=== PATIENT | female | born 1955 | race African-American/Black ===

== ENCOUNTER 2023-04-17 16:10 | Inpatient (IN) | payer MEDICARE, OTHER ==
[~2023-04-17] VITALS: Ht 162.6 cm; Wt 72.9 kg
[2023-04-17] VITALS (7 sets, daily range): BP systolic 122–240; BP diastolic 68–133; PULSE 89–108; RESP 14–20; O2SAT 98–100
[2023-04-17] MEDS: ETOMIDATE (2MG/ML) 20ML VIAL IV ONE ×2 (16:10→16:36)
[2023-04-17] MEDS: LORazepam 2MG/ML-1ML VIAL IV ONE ×2 (16:10→16:13)
[2023-04-17] MEDS: ROCURONIUM 10MG/ML 10ML VIAL IV ONE ×2 (16:10→16:36)
[2023-04-17] MEDS: PROPOFOL 100 ML IV SCH (16:22)
[2023-04-17 16:42] LABS: Basophils # (auto) 0 10 ^3/uL (0-0.2); Basophils % (auto) 0.6 % (0.0-2.0); Eosinophils # (auto) 0.1 10 ^3/uL (0-0.8); Eosinophils % (auto) 1.1 % (0.0-7.0); Hemoglobin 10.7 g/dL (12.2-16.2); Lymphocytes # (auto) 1.5 10 ^3/uL (0.4-5.4); Lymphocytes % (auto) 16.6 % (10.0-50.0); Mean Corpuscular Hemoglobin 25.8 pg (28.0-32.0); Mean Corpuscular Hgb Conc. 30.5 g/dL (32.0-36.0); Mean Corpuscular Volume 84.5 fL (80.0-100.0); Monocytes # (auto) 0.5 10 ^3/uL (0-1.3); Monocytes % (auto) 5.6 % (0.0-12.0); Neutrophils # (auto) 6.7 10 ^3/uL (1.6-8.6); Neutrophils % (auto) 76.1 % (37.0-80.0); Red Blood Cells 4.14 10^6/uL (4.0-5.20); Red Cell Distribution Width 16.1 % (11.8-14.3); White Blood Cell 8.8 10^3/uL (4.4-10.8)
[2023-04-17] MEDS ORDERED: LORazepam 2MG/ML-1ML VIAL IV ONE (16:45)
[2023-04-17 16:58] LABS: INR 0.95 (0.9-1.15)
[2023-04-17 17:04] LABS: Alanine Aminotransferase 25 U/L (7-40); Albumin 3.7 g/dL (3.2-4.8); Alkaline Phosphatase 112 U/L (46-116); Anion Gap 7 (5-15); Aspartate Aminotransferase 28 U/L (13-40); BUN/Creatinine Ratio 10.5 (10.0-20.0); Blood Alcohol < 3.0 mg/dL (<10); Blood Urea Nitrogen 16 mg/dL (9-23); Calcium 9.4 mg/dL (8.5-10.1); Carbon Dioxide 26 mmol/L (20-30); Chloride 95 mmol/L (98-107); Potassium 3.7 mmol/L (3.5-5.1); Sodium 128 mmol/L (136-145)
[2023-04-17] MEDS: levETIRAcetam 1000 mg/100ml 100 ML IV ONE (17:04)
[2023-04-17] MEDS: levETIRAcetam 500 MG/5ML INJ IV ONE (17:04)
[2023-04-17 17:05] LABS: Bilirubin, Total 0.4 mg/dL (0.2-1.0)
[2023-04-17 17:14] LABS: Glucose 708 mg/dL (74-106)
[2023-04-17 17:16] LABS: Urine Bacteria FEW /hpf (None Seen); Urine Blood 1+ /uL (Negative); Urine Clarity Clear (Clear); Urine Color Colorless (Yellow); Urine Protein, UAD 2+ (Negative); Urine Urobilinogen Normal (Negative); Urine WBC 99 /hpf (0 - 5)
[2023-04-17 17:19] LABS: Amphetamine Screen, Urine Neg (NEGATIVE); Barbiturate Scree,Urine Neg (NEGATIVE); Benzodiazephine Screen, Urine Pos (NEGATIVE); Cannabinoid Screen, Urine Neg (NEGATIVE); Cocaine Screen, Urine Neg (NEGATIVE); Opiate Scree,Urine Neg (NEGATIVE); Phencyclidine Screen, Urine Neg (NEGATIVE)
[2023-04-17] MEDS: InsuLIN REG 1unit/0.01ml Soln (100units/ml) IV ONE (17:59)
[2023-04-17 18:19] LABS: Base Excess 3.9 mmol/L (-2.0-2.0)
[2023-04-17] MEDS ORDERED: ATOR-47 PO (19:30)
[2023-04-17] MEDS ORDERED: AMLO1TAB23 PO (19:30)
[2023-04-17] MEDS ORDERED: NITROGLYCERIN 0.4 MG SL TAB SL PRN (20:30)
[2023-04-17] MEDS ORDERED: MORPHINE SULFATE INJ 2 MG/ml SYRG IV PRN (20:30)
[2023-04-17 21:36] LABS: Lactic Acid w/Reflex 3.4 mmol/L (0.4-2.0)
[2023-04-17] MEDS: cefTRIAXone 1GM/50ML D5W 50 ML IV ONE (21:51)
[2023-04-17] MEDS: SODIUM CHLORIDE 0.9% 1,000 ML IV SCH (21:51)
[2023-04-17] MEDS: SODIUM CHLORIDE 0.9% 1,750 ML IV ONE (21:51)
[2023-04-17] MEDS: InsuLIN REG 1unit/0.01ml Soln (100units/ml) SC ONE (22:09)
[2023-04-17] MEDS ORDERED: LORazepam 2MG/ML-1ML VIAL IV PRN (22:15)
[2023-04-17] MEDS: ENOXAPARIN SOD 40 MG/0.4 ML SYRINGE SC SCH (22:15)
[2023-04-17] MEDS: INSULIN LANTUS (GLARGINE) 1 /0.01ml (100units/ml) SC SCH (22:17)
[2023-04-18] VITALS (61 sets, daily range): BP systolic 105–185; BP diastolic 66–96; PULSE 59–97; RESP 14–18; TEMP 97–99.3; O2SAT 100
[2023-04-18] MEDS: ACCU-CHEK COMFORT CURVE STRIP VI SCH (00:31)
[2023-04-18] MEDS: InsuLIN REG 1unit/0.01ml Soln (100units/ml) SC SCH (00:54)
[2023-04-18 05:28] LABS: Eosinophils # (auto) 0.1 10 ^3/uL (0-0.8); Eosinophils % (auto) 0.8 % (0.0-7.0); Hemoglobin 9.3 g/dL (12.2-16.2); Lymphocytes # (auto) 1.2 10 ^3/uL (0.4-5.4); Monocytes # (auto) 0.6 10 ^3/uL (0-1.3)
[2023-04-18 05:31] LABS: Basophils # (auto) 0 10 ^3/uL (0-0.2); Basophils % (auto) 0.4 % (0.0-2.0); Hematocrit 28.9 % (36.0-46.0); Lymphocytes % (auto) 9.7 % (10.0-50.0); Mean Corpuscular Hemoglobin 25.7 pg (28.0-32.0); Mean Corpuscular Hgb Conc. 32.2 g/dL (32.0-36.0); Monocytes % (auto) 4.6 % (0.0-12.0); Neutrophils # (auto) 10.3 10 ^3/uL (1.6-8.6); Neutrophils % (auto) 84.5 % (37.0-80.0); Red Blood Cells 3.61 10^6/uL (4.0-5.20); Red Cell Distribution Width 15.2 % (11.8-14.3); White Blood Cell 12.2 10^3/uL (4.4-10.8)
[2023-04-18 05:45] LABS: Alanine Aminotransferase 17 U/L (7-40); Albumin 2.9 g/dL (3.2-4.8); Alkaline Phosphatase 86 U/L (46-116); Anion Gap 6 (5-15); Aspartate Aminotransferase 21 U/L (13-40); BUN/Creatinine Ratio 14.5 (10.0-20.0); Bilirubin, Total 0.3 mg/dL (0.2-1.0); Blood Urea Nitrogen 17 mg/dL (9-23); Calcium 8.8 mg/dL (8.5-10.1); Carbon Dioxide 27 mmol/L (20-30); Chloride 105 mmol/L (98-107); Glucose 173 mg/dL (74-106); Sodium 138 mmol/L (136-145); Total Protein 6.4 g/dL (5.7-8.2)
[2023-04-18 06:11] LABS: Potassium 2.8 mmol/L (3.5-5.1)
[2023-04-18] MEDS: POTASSIUM CHL 20MEQ/100ML 100 ML IV SCH (06:58)
[2023-04-18 07:18] LABS: Base Excess 0.3 mmol/L (-2.0-2.0)
[2023-04-18 08:40] LABS: Magnesium 1.7 mg/dL (1.6-2.6)
[2023-04-18 09:11] LABS: Base Excess -1.1 mmol/L (-2.0-2.0)
[2023-04-18] MEDS: cefTRIAXone 1GM/50ML D5W 50 ML IV SCH (09:45)
[2023-04-18] MEDS ORDERED: HEPARIN SODIUM (PORCINE) 5000 UNITS/ML 1ML VIAL SC SCH (10:00)
[2023-04-18 11:35] LABS: Free T3 1.93 pg/mL (2.3-4.2); Free T4 (Free Thyroxine) 1.05 ng/dL (0.89-1.76)
[2023-04-18] MEDS: DEXTROSE (50%) 50ML SYRG IV PRN (12:20)
[2023-04-18] MEDS: PIPERACILLIN-TAZOB 2.25GM 50 ML IV ONE (13:00)
[2023-04-18] MEDS: fentaNYL Drip 2500mCg/250mlNS 250 ML IV SCH (14:43)
[2023-04-18] MEDS: PIPERACILLIN-TAZOB 3.375GM 100 ML IV SCH (14:44)
[2023-04-18] MEDS: POTASSIUM CHLORIDE 20 MEQ in D5W 5% 1,000 ML IV SCH (15:22)
[2023-04-19] VITALS (45 sets, daily range): BP systolic 111–195; BP diastolic 61–100; PULSE 56–100; RESP 11–23; TEMP 85.1–100.2; O2SAT 97–100
[2023-04-19 06:12] LABS: Alanine Aminotransferase 12 U/L (7-40); Albumin 2.3 g/dL (3.2-4.8); Alkaline Phosphatase 69 U/L (46-116); Anion Gap 5 (5-15); Aspartate Aminotransferase 17 U/L (13-40); BUN/Creatinine Ratio 13.2 (10.0-20.0); Basophils # (auto) 0.1 10 ^3/uL (0-0.2); Blood Urea Nitrogen 14 mg/dL (9-23); Calcium 7.6 mg/dL (8.7-10.4); Carbon Dioxide 24 mmol/L (20-30); Chloride 106 mmol/L (98-107); Eosinophils # (auto) 0.2 10 ^3/uL (0-0.8); Glucose 193 mg/dL (74-106); Lymphocytes # (auto) 3.2 10 ^3/uL (0.4-5.4); Magnesium 1.6 mg/dL (1.6-2.6); Mean Corpuscular Hemoglobin 25.9 pg (28.0-32.0); Monocytes # (auto) 0.6 10 ^3/uL (0-1.3); Potassium 3.2 mmol/L (3.5-5.1); Sodium 135 mmol/L (136-145)
[2023-04-19 06:13] LABS: Bilirubin, Total 0.2 mg/dL (0.2-1.0); Phosphorus 2.8 mg/dL (2.4-5.1); Total Protein 5.5 g/dL (5.7-8.2)
[2023-04-19 06:14] LABS: Basophils % (auto) 0.6 % (0.0-2.0); Hematocrit 25.6 % (36.0-46.0); Hemoglobin 8.3 g/dL (12.2-16.2); Lymphocytes % (auto) 34.2 % (10.0-50.0); Mean Corpuscular Hgb Conc. 32.4 g/dL (32.0-36.0); Monocytes % (auto) 6.3 % (0.0-12.0); Neutrophils # (auto) 5.3 10 ^3/uL (1.6-8.6); Neutrophils % (auto) 56.9 % (37.0-80.0); Red Cell Distribution Width 15.4 % (11.8-14.3); White Blood Cell 9.4 10^3/uL (4.4-10.8)
[2023-04-19 06:25] LABS: Base Excess -3.2 mmol/L (-2.0-2.0)
[2023-04-19] MEDS: PANTOPRAZOLE 40 MG/10 ML VIAL INJ IV SCH (10:18)
[2023-04-19] MEDS: Glucerna 1.2 Cal 1Liter BOTTLE GT SCH (20:21)
[2023-04-19] MEDS: POTASSIUM CHLORIDE 20 MEQ, LIDOCAINE 1% (LOCAL ANESTH.) 2 ML in SODIUM CHL 0.9% 100 ML IV ONE (20:45)
[2023-04-19] MEDS ORDERED: ERGOCALCIFEROL 50,000 UNIT(1.25MG) CAP PO SCH (22:00)
[2023-04-19] MEDS: hydrALAZINE HCL 20 MG/ML VL IV PRN (22:12)
[2023-04-19] MEDS: POTASSIUM CHL 20MEQ/100ML 100 ML IV ONE (22:31)
[2023-04-20] VITALS (104 sets, daily range): BP systolic 91–190; BP diastolic 54–107; PULSE 83–114; RESP 9–33; TEMP 98.6–99.5; O2SAT 95–100
[2023-04-20] MEDS ORDERED: hydrALAZINE HCL 20 MG/ML VL IV SCH
[2023-04-20 04:18] LABS: Eosinophils # (auto) 0.1 10 ^3/uL (0-0.8); Monocytes # (auto) 0.7 10 ^3/uL (0-1.3); Monocytes % (auto) 5.8 % (0.0-12.0)
[2023-04-20 04:20] LABS: Basophils # (auto) 0.1 10 ^3/uL (0-0.2); Basophils % (auto) 0.4 % (0.0-2.0); Eosinophils % (auto) 0.4 % (0.0-7.0); Hematocrit 30.9 % (36.0-46.0); Hemoglobin 10.1 g/dL (12.2-16.2); Lymphocytes # (auto) 1.2 10 ^3/uL (0.4-5.4); Lymphocytes % (auto) 9.2 % (10.0-50.0); Mean Corpuscular Hemoglobin 26.5 pg (28.0-32.0); Mean Corpuscular Hgb Conc. 32.7 g/dL (32.0-36.0); Mean Corpuscular Volume 80.9 fL (80.0-100.0); Neutrophils # (auto) 10.6 10 ^3/uL (1.6-8.6); Neutrophils % (auto) 84.2 % (37.0-80.0); Red Blood Cells 3.82 10^6/uL (4.0-5.20); Red Cell Distribution Width 15.9 % (11.8-14.3); White Blood Cell 12.6 10^3/uL (4.4-10.8)
[2023-04-20 04:41] LABS: Alanine Aminotransferase 14 U/L (7-40); Alkaline Phosphatase 95 U/L (46-116); Anion Gap 5 (5-15); BUN/Creatinine Ratio 12.8 (10.0-20.0); Blood Urea Nitrogen 14 mg/dL (9-23); Calcium 8.2 mg/dL (8.7-10.4); Carbon Dioxide 24 mmol/L (20-30); Chloride 107 mmol/L (98-107); Glucose 112 mg/dL (74-106); Potassium 4.6 mmol/L (3.5-5.1); Sodium 136 mmol/L (136-145)
[2023-04-20 04:42] LABS: Albumin 2.8 g/dL (3.2-4.8); Aspartate Aminotransferase 24 U/L (13-40); Bilirubin, Total 0.2 mg/dL (0.2-1.0); Total Protein 6.4 g/dL (5.7-8.2)
[2023-04-20] MEDS ORDERED: VANCOMYCIN PER PHARMACY 0 MG IV SCH (08:15)
[2023-04-20 11:41] LABS: Base Excess -1.6 mmol/L (-2.0-2.0)
[2023-04-20] MEDS: hydrALAZINE HCL 20 MG/ML VL IV ONE ×2 (11:52→17:16)
[2023-04-20] MEDS: VANCOMYCIN 1GM/200ML 200 ML IV ONE (12:20)
[2023-04-20] MEDS: IRON SUCROSE COMPLEX 100 ML IV SCH (14:48)
[2023-04-20] MEDS: CEFEPIME 1GM/ 50ML 50 ML IV SCH (15:02)
[2023-04-21] VITALS (109 sets, daily range): BP systolic 129–180; BP diastolic 63–110; PULSE 36–107; RESP 8–24; TEMP 98.3–99.4; O2SAT 98–100
[2023-04-21 04:31] LABS: Basophils # (auto) 0.1 10 ^3/uL (0-0.2); Basophils % (auto) 0.5 % (0.0-2.0); Eosinophils # (auto) 0.1 10 ^3/uL (0-0.8); Eosinophils % (auto) 0.7 % (0.0-7.0); Hematocrit 29.7 % (36.0-46.0); Hemoglobin 9.2 g/dL (12.2-16.2); Lymphocytes # (auto) 1.5 10 ^3/uL (0.4-5.4); Lymphocytes % (auto) 12.2 % (10.0-50.0); Mean Corpuscular Hemoglobin 25.5 pg (28.0-32.0); Mean Corpuscular Hgb Conc. 30.8 g/dL (32.0-36.0); Mean Corpuscular Volume 82.9 fL (80.0-100.0); Monocytes # (auto) 1.2 10 ^3/uL (0-1.3); Monocytes % (auto) 9.7 % (0.0-12.0); Neutrophils # (auto) 9.6 10 ^3/uL (1.6-8.6); Neutrophils % (auto) 76.9 % (37.0-80.0); Red Blood Cells 3.59 10^6/uL (4.0-5.20); Red Cell Distribution Width 15.9 % (11.8-14.3); White Blood Cell 12.5 10^3/uL (4.4-10.8)
[2023-04-21 04:37] LABS: Chloride 112 mmol/L (98-107); Potassium 3.8 mmol/L (3.5-5.1); Sodium 142 mmol/L (136-145)
[2023-04-21 04:38] LABS: Anion Gap 7 (5-15); Calcium 8.3 mg/dL (8.7-10.4); Carbon Dioxide 23 mmol/L (20-30)
[2023-04-21 04:43] LABS: BUN/Creatinine Ratio 11.9 (10.0-20.0); Blood Urea Nitrogen 12 mg/dL (9-23); Glucose 70 mg/dL (74-106)
[2023-04-21 05:23] LABS: Base Excess -1.5 mmol/L (-2.0-2.0)
[2023-04-21] MEDS: hydrALAZINE HCL 20 MG/ML VL IV PRN (05:45)
[2023-04-21] MEDS: ONDANSETRON HCL 4 MG/2 ML VIAL IV PRN (07:12)
[2023-04-21] MEDS: amLODIPine BESYLATE 5 MG TAB PO SCH (10:00)
[2023-04-21] MEDS: METOCLOPRAMIDE HCL 5MG/ml INJ 2ml VIAL IV PRN (11:31)
[2023-04-21] MEDS: VANCOMYCIN 1GM/200ML 200 ML IV SCH (12:27)
[2023-04-21] MEDS: IPRATROPIUM BROM 0.5 MG/2.5ML INH SOL NEB SCH (12:40)
[2023-04-21] MEDS ORDERED: METOCLOPRAMIDE HCL 5MG/ml INJ 2ml VIAL IV PRN (14:45)
[2023-04-21] MEDS: hydrALAZINE HCL 20 MG/ML VL IV SCH (18:45)
[2023-04-21 19:17] LABS: Chloride 111 mmol/L (98-107); Potassium 3.9 mmol/L (3.5-5.1); Sodium 141 mmol/L (136-145)
[2023-04-21 19:18] LABS: Anion Gap 8 (5-15); Calcium 8.6 mg/dL (8.7-10.4); Carbon Dioxide 22 mmol/L (20-30)
[2023-04-21 19:23] LABS: BUN/Creatinine Ratio 15.6 (10.0-20.0); Blood Urea Nitrogen 15 mg/dL (9-23); Glucose 119 mg/dL (74-106)
[2023-04-22] VITALS (58 sets, daily range): BP systolic 99–171; BP diastolic 53–95; PULSE 71–94; RESP 11–16; TEMP 97.9–98.6; O2SAT 95–100
[2023-04-22] MEDS: ERGOCALCIFEROL 50,000 UNIT(1.25MG) CAP PO SCH (00:23)
[2023-04-22 04:12] LABS: Eosinophils # (auto) 0 10 ^3/uL (0-0.8); Hemoglobin 9.5 g/dL (12.2-16.2); Mean Corpuscular Hemoglobin 25.8 pg (28.0-32.0); Neutrophils # (auto) 9.3 10 ^3/uL (1.6-8.6); Neutrophils % (auto) 79.9 % (37.0-80.0); Red Blood Cells 3.69 10^6/uL (4.0-5.20); White Blood Cell 11.7 10^3/uL (4.4-10.8)
[2023-04-22 04:14] LABS: Basophils # (auto) 0.1 10 ^3/uL (0-0.2); Basophils % (auto) 0.5 % (0.0-2.0); Eosinophils % (auto) 0.2 % (0.0-7.0); Hematocrit 30.7 % (36.0-46.0); Lymphocytes # (auto) 1.3 10 ^3/uL (0.4-5.4); Lymphocytes % (auto) 10.9 % (10.0-50.0); Mean Corpuscular Hgb Conc. 31.1 g/dL (32.0-36.0); Monocytes % (auto) 8.5 % (0.0-12.0); Nucleated Red Blood Cells % 0.1 %; Red Cell Distribution Width 16.2 % (11.8-14.3)
[2023-04-22 04:23] LABS: Chloride 111 mmol/L (98-107); Potassium 3.8 mmol/L (3.5-5.1); Sodium 141 mmol/L (136-145)
[2023-04-22 04:24] LABS: Anion Gap 8 (5-15); Carbon Dioxide 22 mmol/L (20-30)
[2023-04-22 04:29] LABS: BUN/Creatinine Ratio 16.8 (10.0-20.0); Blood Urea Nitrogen 17 mg/dL (9-23); Glucose 141 mg/dL (74-106)
[2023-04-22] MEDS: POTASSIUM CHL 20MEQ/100ML 100 ML IV SCH (12:17)
[2023-04-23] VITALS (70 sets, daily range): BP systolic 117–207; BP diastolic 53–115; PULSE 83–95; RESP 10–23; TEMP 97.9–98.3; O2SAT 95–100
[2023-04-23 04:28] LABS: Basophils # (auto) 0.1 10 ^3/uL (0-0.2); Eosinophils # (auto) 0.2 10 ^3/uL (0-0.8); Hematocrit 29.7 % (36.0-46.0); Hemoglobin 9.4 g/dL (12.2-16.2); Mean Corpuscular Hemoglobin 25.6 pg (28.0-32.0); Mean Corpuscular Hgb Conc. 31.6 g/dL (32.0-36.0); Red Cell Distribution Width 15.6 % (11.8-14.3); White Blood Cell 11.4 10^3/uL (4.4-10.8)
[2023-04-23 04:32] LABS: Basophils % (auto) 0.7 % (0.0-2.0); Eosinophils % (auto) 1.7 % (0.0-7.0); Mean Corpuscular Volume 81.3 fL (80.0-100.0); Monocytes # (auto) 1.1 10 ^3/uL (0-1.3); Monocytes % (auto) 9.7 % (0.0-12.0); Neutrophils # (auto) 7.9 10 ^3/uL (1.6-8.6); Neutrophils % (auto) 69.9 % (37.0-80.0); Nucleated Red Blood Cells % 0.1 %; Red Blood Cells 3.65 10^6/uL (4.0-5.20)
[2023-04-23 04:39] LABS: Anion Gap 6 (5-15); Carbon Dioxide 22 mmol/L (20-30); Chloride 109 mmol/L (98-107); Sodium 137 mmol/L (136-145)
[2023-04-23 04:40] LABS: Calcium 8.7 mg/dL (8.7-10.4); INR 0.96 (0.9-1.15); Partial Thromboplastin Time 38.4 SEC (24.5-34.5); Prothrombin Time 10.1 sec (9.3-11.8)
[2023-04-23 04:45] LABS: BUN/Creatinine Ratio 18.9 (10.0-20.0); Blood Urea Nitrogen 17 mg/dL (9-23); Glucose 80 mg/dL (74-106)
[2023-04-23] MEDS: D5W/SOD CHL 0.45% 250 ML IV ONE (08:45)
[2023-04-23] MEDS: LIDOCAINE 2%HCL (LOCAL ANESTH.) INJ 20ML MDV ONE (12:59)
[2023-04-23] MEDS: VANCOMYCIN 1GM/200ML 200 ML IV ONE (13:12)
[2023-04-23] MEDS: VANCOMYCIN HCL 1000 MG VL ONE (13:12)
[2023-04-23] MEDS: fentaNYL CITRATE 100 MCG/2 ML VL ONE (13:33)
[2023-04-23] MEDS: MIDAZOLAM HCL 2MG/2ML 2ml VIAL (1mg/ml) ONE (13:34)
[2023-04-23] MEDS: IOHEXOL 350 MG/ML 100ML IJ ONE (13:44)
[2023-04-23] MEDS: hydrALAZINE HCL 20 MG/ML VL IV PRN (15:08)
[2023-04-23] MEDS: LOSARTAN POTASSIUM 25 MG TAB PO ONE (22:21)
[2023-04-24] VITALS (102 sets, daily range): BP systolic 113–170; BP diastolic 56–99; PULSE 78–100; RESP 9–18; TEMP 98–98.4; O2SAT 92–100
[2023-04-24 03:52] LABS: Basophils # (auto) 0.1 10 ^3/uL (0-0.2); Eosinophils # (auto) 0.1 10 ^3/uL (0-0.8); Hematocrit 28.1 % (36.0-46.0); Monocytes # (auto) 1.2 10 ^3/uL (0-1.3); Neutrophils % (auto) 70.5 % (37.0-80.0); Nucleated Red Blood Cells % 0.1 %
[2023-04-24 03:55] LABS: Basophils % (auto) 0.5 % (0.0-2.0); Eosinophils % (auto) 1.1 % (0.0-7.0); Lymphocytes # (auto) 1.7 10 ^3/uL (0.4-5.4); Lymphocytes % (auto) 16.2 % (10.0-50.0); Monocytes % (auto) 11.7 % (0.0-12.0); Neutrophils # (auto) 7.3 10 ^3/uL (1.6-8.6); Red Blood Cells 3.47 10^6/uL (4.0-5.20); Red Cell Distribution Width 15.7 % (11.8-14.3); White Blood Cell 10.4 10^3/uL (4.4-10.8)
[2023-04-24 04:15] LABS: Anion Gap 7 (5-15); Carbon Dioxide 23 mmol/L (20-30); Chloride 106 mmol/L (98-107); Potassium 3.8 mmol/L (3.5-5.1); Sodium 136 mmol/L (136-145)
[2023-04-24 04:16] LABS: Calcium 8.7 mg/dL (8.5-10.1)
[2023-04-24 04:21] LABS: BUN/Creatinine Ratio 18.9 (10.0-20.0); Blood Urea Nitrogen 18 mg/dL (9-23); Glucose 104 mg/dL (74-106)
[2023-04-24] MEDS: LOSARTAN POTASSIUM 25 MG TAB PO SCH (09:39)
[2023-04-24] MEDS: cloNIDine HCL 0.1 MG TAB PO PRN (16:55)
[2023-04-25] VITALS (46 sets, daily range): BP systolic 109–181; BP diastolic 61–94; PULSE 72–97; RESP 9–19; TEMP 98–98.5; O2SAT 86–100
[2023-04-25] MEDS: ACETAMINOPHEN 325 MG TAB PO PRN (00:24)
[2023-04-25 04:04] LABS: Basophils # (auto) 0 10 ^3/uL (0-0.2); Eosinophils # (auto) 0.2 10 ^3/uL (0-0.8); Hemoglobin 8.8 g/dL (12.2-16.2); Lymphocytes # (auto) 2.1 10 ^3/uL (0.4-5.4); Nucleated Red Blood Cells % 0.1 %
[2023-04-25 04:06] LABS: Basophils % (auto) 0.4 % (0.0-2.0); Eosinophils % (auto) 2.7 % (0.0-7.0); Lymphocytes % (auto) 23.9 % (10.0-50.0); Mean Corpuscular Hemoglobin 26.3 pg (28.0-32.0); Mean Corpuscular Hgb Conc. 32.8 g/dL (32.0-36.0); Mean Corpuscular Volume 80.1 fL (80.0-100.0); Monocytes % (auto) 11.8 % (0.0-12.0); Neutrophils # (auto) 5.3 10 ^3/uL (1.6-8.6); Neutrophils % (auto) 61.2 % (37.0-80.0); Red Blood Cells 3.36 10^6/uL (4.0-5.20); Red Cell Distribution Width 15.5 % (11.8-14.3); White Blood Cell 8.6 10^3/uL (4.4-10.8)
[2023-04-25 04:17] LABS: Calcium 8.2 mg/dL (8.7-10.4); Chloride 108 mmol/L (98-107); Potassium 3.8 mmol/L (3.5-5.1); Sodium 136 mmol/L (136-145)
[2023-04-25 04:18] LABS: Anion Gap 5 (5-15); Carbon Dioxide 23 mmol/L (20-30)
[2023-04-25 04:23] LABS: BUN/Creatinine Ratio 18.6 (10.0-20.0); Blood Urea Nitrogen 16 mg/dL (9-23); Glucose 118 mg/dL (74-106)
[2023-04-25] MEDS: LOSARTAN POTASSIUM 25 MG TAB PO SCH (09:41)
[2023-04-25] MEDS: ENOXAPARIN SOD 40 MG/0.4 ML SYRINGE SC SCH (09:42)
[2023-04-26] VITALS (14 sets, daily range): BP systolic 133–165; BP diastolic 66–87; PULSE 81–97; RESP 16–19; TEMP 97.6–98.3; O2SAT 98–100
[2023-04-26 07:00] LABS: Basophils # (auto) 0.1 10 ^3/uL (0-0.2); Eosinophils # (auto) 0.3 10 ^3/uL (0-0.8); Eosinophils % (auto) 2.9 % (0.0-7.0); Hemoglobin 8.3 g/dL (12.2-16.2)
[2023-04-26 07:02] LABS: Basophils % (auto) 0.7 % (0.0-2.0); Hematocrit 25.8 % (36.0-46.0); Mean Corpuscular Hemoglobin 26.3 pg (28.0-32.0); Mean Corpuscular Hgb Conc. 32.3 g/dL (32.0-36.0); Mean Corpuscular Volume 81.3 fL (80.0-100.0); Monocytes # (auto) 1.2 10 ^3/uL (0-1.3); Monocytes % (auto) 12.7 % (0.0-12.0); Neutrophils # (auto) 5.9 10 ^3/uL (1.6-8.6); Neutrophils % (auto) 62.7 % (37.0-80.0); Nucleated Red Blood Cells % 0.2 %; Red Blood Cells 3.17 10^6/uL (4.0-5.20); Red Cell Distribution Width 15.4 % (11.8-14.3); White Blood Cell 9.4 10^3/uL (4.4-10.8)
[2023-04-26 07:08] LABS: Chloride 107 mmol/L (98-107); Potassium 4.1 mmol/L (3.5-5.1); Sodium 137 mmol/L (136-145)
[2023-04-26 07:09] LABS: Anion Gap 5 (5-15); Carbon Dioxide 25 mmol/L (20-30)
[2023-04-26 07:10] LABS: Calcium 8.3 mg/dL (8.7-10.4)
[2023-04-26 07:14] LABS: Glucose 79 mg/dL (74-106)
[2023-04-26 07:15] LABS: BUN/Creatinine Ratio 16.5 (10.0-20.0); Blood Urea Nitrogen 14 mg/dL (9-23); Magnesium 1.9 mg/dL (1.6-2.6)
[2023-04-26] MEDS: MAGNESIUM OXIDE 400 MG TAB PO ONE (10:05)
[2023-04-26] MEDS: DOCUSATE SOD 100 MG CAP PO PRN (15:14)
[2023-04-26] MEDS: traMADol HCL 50 MG TAB PO PRN (15:23)
[2023-04-27] VITALS (16 sets, daily range): BP systolic 132–177; BP diastolic 70–92; PULSE 82–93; RESP 16–20; TEMP 97.8–98.3; O2SAT 96–100
[2023-04-27 05:32] LABS: Chloride 107 mmol/L (98-107); Potassium 4.1 mmol/L (3.5-5.1); Sodium 137 mmol/L (136-145)
[2023-04-27 05:33] LABS: Anion Gap 5 (5-15); Calcium 8.1 mg/dL (8.7-10.4); Carbon Dioxide 25 mmol/L (20-30)
[2023-04-27 05:38] LABS: BUN/Creatinine Ratio 17.6 (10.0-20.0); Basophils # (auto) 0.1 10 ^3/uL (0-0.2); Basophils % (auto) 0.7 % (0.0-2.0); Blood Urea Nitrogen 15 mg/dL (9-23); Eosinophils # (auto) 0.3 10 ^3/uL (0-0.8); Hemoglobin 8.2 g/dL (12.2-16.2); Neutrophils # (auto) 6.9 10 ^3/uL (1.6-8.6); Red Cell Distribution Width 15.9 % (11.8-14.3); White Blood Cell 11.2 10^3/uL (4.4-10.8)
[2023-04-27 05:39] LABS: Magnesium 1.9 mg/dL (1.6-2.6)
[2023-04-27 05:41] LABS: Eosinophils % (auto) 3.1 % (0.0-7.0); Hematocrit 26.3 % (36.0-46.0); Lymphocytes # (auto) 2.6 10 ^3/uL (0.4-5.4); Lymphocytes % (auto) 22.9 % (10.0-50.0); Mean Corpuscular Hemoglobin 25.6 pg (28.0-32.0); Mean Corpuscular Hgb Conc. 31.1 g/dL (32.0-36.0); Mean Corpuscular Volume 82.1 fL (80.0-100.0); Monocytes # (auto) 1.3 10 ^3/uL (0-1.3); Monocytes % (auto) 11.7 % (0.0-12.0); Neutrophils % (auto) 61.6 % (37.0-80.0); Nucleated Red Blood Cells % 0.2 %
[2023-04-27 05:49] LABS: Glucose 42 mg/dL (74-106)
[2023-04-27] MEDS: VALSARTAN 80 MG TAB PO SCH (10:21)
[2023-04-27] MEDS: CARVEDILOL 3.125 MG TAB PO ONE (14:07)
[2023-04-27] MEDS: LACTULOSE 20Gm/30ML SOLN PO SCH (21:58)
[2023-04-27] MEDS: CARVEDILOL 3.125 MG TAB PO SCH (21:59)
[2023-04-28] VITALS (8 sets, daily range): BP systolic 153–167; BP diastolic 71–88; PULSE 76–90; RESP 16–20; TEMP 97.6–98.7; O2SAT 97–100
[2023-04-28 05:57] LABS: Basophils # (auto) 0.1 10 ^3/uL (0-0.2); Eosinophils # (auto) 0.3 10 ^3/uL (0-0.8); Eosinophils % (auto) 3.3 % (0.0-7.0); Hematocrit 25.9 % (36.0-46.0); Hemoglobin 8.2 g/dL (12.2-16.2); Lymphocytes # (auto) 1.9 10 ^3/uL (0.4-5.4); Mean Corpuscular Hemoglobin 26.1 pg (28.0-32.0); Neutrophils # (auto) 5.5 10 ^3/uL (1.6-8.6); Nucleated Red Blood Cells % 0.1 %; Red Blood Cells 3.15 10^6/uL (4.0-5.20)
[2023-04-28 05:59] LABS: Basophils % (auto) 0.6 % (0.0-2.0); Lymphocytes % (auto) 22.1 % (10.0-50.0); Mean Corpuscular Hgb Conc. 31.7 g/dL (32.0-36.0); Mean Corpuscular Volume 82.4 fL (80.0-100.0); Monocytes % (auto) 11.4 % (0.0-12.0); Neutrophils % (auto) 62.6 % (37.0-80.0); White Blood Cell 8.8 10^3/uL (4.4-10.8)
[2023-04-28 06:06] LABS: Chloride 105 mmol/L (98-107); Potassium 4.6 mmol/L (3.5-5.1); Sodium 137 mmol/L (136-145)
[2023-04-28 06:07] LABS: Anion Gap 5 (5-15); Carbon Dioxide 27 mmol/L (20-30)
[2023-04-28 06:08] LABS: Calcium 8.5 mg/dL (8.5-10.1)
[2023-04-28 06:12] LABS: BUN/Creatinine Ratio 14.3 (10.0-20.0); Blood Urea Nitrogen 12 mg/dL (9-23); Glucose 94 mg/dL (74-106)
[2023-04-28] MEDS: INSULIN LANTUS (GLARGINE) 1 /0.01ml (100units/ml) SC SCH (06:14)
[2023-04-28] MEDS ORDERED: CAR3125T PO (08:15)
[2023-04-28] MEDS ORDERED: VALS1TAB57 PO (08:15)
[2023-04-28] MEDS ORDERED: ERGO1CAP23 PO (08:15)
[2023-04-28] MEDS ORDERED: PANT40T PO (08:24)
[2023-04-28] MEDS ORDERED: FERR1TAB36 PO (08:24)
[2023-04-28] MEDS: PANTOPRAZOLE 40 MG TAB PO SCH (10:00)
[2023-04-28] MEDS: PANTOPRAZOLE 40 MG TAB PO ONE (10:56)
[2023-04-28] MEDS: LEVOTHYROXINE SODIUM 25 MCG TAB PO ONE (11:15)
[2023-04-28 13:04] LABS: COVID19 ANTIGEN SOFIA FIA NEGATIVE (NEGATIVE)
[2023-04-29] MEDS ORDERED: LEVOTHYROXINE SODIUM 25 MCG TAB PO SCH (07:00)
== END 2023-04-28 19:10 | DRG 853 ==
LOC: EDBD 16:10 → ER 16:10 → TELE 20:23 → ICU WEST 04-19 15:31 → TELE-CENTR 04-25 13:10
PROVIDERS: ADMIT Internal Medicine; ATTEND Emergency Medicine
PROC: 0BH17EZ Insertion of Endotracheal Airway into Trachea, Via Natural or Artificial Opening (ICD-10-PCS; 2023-04-17)
PROC: 5A1945Z Respiratory Ventilation, 24-96 Consecutive Hours (ICD-10-PCS; 2023-04-17)
PROC: 0JH606Z Insertion of Pacemaker, Dual Chamber into Chest Subcutaneous Tissue and Fascia, Open Approach (ICD-10-PCS; principal; 2023-04-23)
PROC: 02H63JZ Insertion of Pacemaker Lead into Right Atrium, Percutaneous Approach (ICD-10-PCS; 2023-04-23)
PROC: B5171ZZ Fluoroscopy of Left Subclavian Vein using Low Osmolar Contrast (ICD-10-PCS; 2023-04-23)
PROC: 02HK3JZ Insertion of Pacemaker Lead into Right Ventricle, Percutaneous Approach (ICD-10-PCS; 2023-04-23)
PROC: 05H933Z Insertion of Infusion Device into Right Brachial Vein, Percutaneous Approach (ICD-10-PCS; 2023-04-27)
PROC: B54MZZA Ultrasonography of Right Upper Extremity Veins, Guidance (ICD-10-PCS; 2023-04-27)
DX: A41.9 Sepsis, unspecified organism (principal); E43 Unspecified severe protein-calorie malnutrition; J69.0 Pneumonitis due to inhalation of food and vomit; I21.A1 Myocardial infarction type 2; J96.01 Acute respiratory failure with hypoxia; J15.9 Unspecified bacterial pneumonia; I44.2 Atrioventricular block, complete; I16.1 Hypertensive emergency; I67.4 Hypertensive encephalopathy; E72.51 Non-ketotic hyperglycinemia; N39.0 Urinary tract infection, site not specified; G40.401 Other generalized epilepsy and epileptic syndromes, not intractable, with status epilepticus; I10 Essential (primary) hypertension; E11.65 Type 2 diabetes mellitus with hyperglycemia; E78.5 Hyperlipidemia, unspecified; D50.9 Iron deficiency anemia, unspecified; E03.9 Hypothyroidism, unspecified; E03.8 Other specified hypothyroidism; E55.9 Vitamin D deficiency, unspecified; Z20.822 Contact with and (suspected) exposure to COVID-19; E87.6 Hypokalemia; M06.9 Rheumatoid arthritis, unspecified; Z86.73 Personal history of transient ischemic attack (TIA), and cerebral infarction without residual deficits; Z82.49 Family history of ischemic heart disease and other diseases of the circulatory system; Z83.3 Family history of diabetes mellitus; Z91.199 Patient's noncompliance with other medical treatment and regimen due to unspecified reason; Z68.27 Body mass index [BMI] 27.0-27.9, adult
CPT/HCPCS: 33208; 36415; 36600; 70450; 70551; 71045; 80048; 80053; 80061; 80202; 80307; 80320; 81001; 82010; 82140; 82270; 82306; 82565; 82607; 82746; 82805; 82962; 83010; 83036; 83540; 83550; 83605; 83615; 83690; 83735; 83930; 84100; 84132; 84436; 84439; 84443; 84481; 84484; 85025; 85045; 85610; 85730; 86850; 86900; 86901; 87070; 87077; 87081; 87086; 87088; 87186; 87205; 87426; 92610; 93005; 93306; 94002; 94003; 94640; 95819; 97110; 97116; 97163; 97530; 99152; 99291; 99292; C9113; G0378; J1756; J1815; J2001; J2250; J2405; J2543; J2704; J3480

== ENCOUNTER 2023-08-04 11:33 | Inpatient (IN) | payer MEDICARE, OTHER ==
[~2023-08-04] VITALS: Ht 162.6 cm; Wt 52.4 kg
[~2023-08-04 11:33] MED LIST: AMLO1TAB23 PO; ATOR-47 PO; CARV-214 PO; ERGO1CAP23 PO; FERR1TAB36 PO; PANT40T PO; VALS1TAB57 PO
[2023-08-04] MEDS: SODIUM CHLORIDE 0.9% 1,000 ML IV ONE (11:45)
[2023-08-04 12:00] VITALS: PULSE 79; RESP 13; O2SAT 98
[2023-08-04 12:12] LABS: Basophils # (auto) 0.1 10 ^3/uL (0-0.2); Basophils % (auto) 0.7 % (0.0-2.0); Eosinophils # (auto) 0.1 10 ^3/uL (0-0.8); Neutrophils # (auto) 7.8 10 ^3/uL (1.6-8.6)
[2023-08-04 12:14] LABS: Eosinophils % (auto) 1.4 % (0.0-7.0); Hematocrit 32.7 % (36.0-46.0); Hemoglobin 10.6 g/dL (12.2-16.2); Lymphocytes # (auto) 1.8 10 ^3/uL (0.4-5.4); Lymphocytes % (auto) 17.2 % (10.0-50.0); Mean Corpuscular Hemoglobin 26.5 pg (28.0-32.0); Mean Corpuscular Hgb Conc. 32.6 g/dL (32.0-36.0); Mean Corpuscular Volume 81.2 fL (80.0-100.0); Monocytes # (auto) 0.6 10 ^3/uL (0-1.3); Monocytes % (auto) 6.2 % (0.0-12.0); Neutrophils % (auto) 74.5 % (37.0-80.0); Nucleated Red Blood Cells % 0.1 %; Red Blood Cells 4.02 10^6/uL (4.0-5.20); Red Cell Distribution Width 16.2 % (11.8-14.3); White Blood Cell 10.5 10^3/uL (4.4-10.8)
[2023-08-04 12:32] LABS: Alanine Aminotransferase 17 U/L (7-40); Alkaline Phosphatase 102 U/L (46-116); Anion Gap 5 (5-15); Aspartate Aminotransferase 15 U/L (13-40); BUN/Creatinine Ratio 29.6 (10.0-20.0); Blood Alcohol < 3.0 mg/dL (<10); Blood Urea Nitrogen 34 mg/dL (9-23); Calcium 10.2 mg/dL (8.5-10.1); Carbon Dioxide 27 mmol/L (20-30); Chloride 104 mmol/L (98-107); Glucose 132 mg/dL (74-106); Potassium 4.3 mmol/L (3.5-5.1); Sodium 136 mmol/L (136-145)
[2023-08-04 12:33] LABS: Bilirubin, Total 0.2 mg/dL (0.2-1.0)
[2023-08-04] MEDS: ASPirin 81 mg TAB PO ONE (14:15)
[2023-08-04] MEDS ORDERED: DOCUSATE SOD 100 MG CAP PO PRN (14:15)
[2023-08-04] MEDS ORDERED: HYDROcodone-ACET 5/325MG TAB PO PRN (14:15)
[2023-08-04] MEDS ORDERED: DEXTROSE (50%) 50ML SYRG IV PRN (14:15)
[2023-08-04] MEDS ORDERED: ONDANSETRON HCL 4 MG/2 ML VIAL IV PRN (14:15)
[2023-08-04] MEDS: SODIUM CHLORIDE 0.9% 1,000 ML IV SCH (14:35)
[2023-08-04 14:57] LABS: Urine Bacteria FEW /hpf (None Seen); Urine Blood 1+ /uL (Negative); Urine Budding Yeast OCCASIONAL /hpf (None Seen); Urine Clarity Turbid (Clear); Urine Color Light-Yellow (Yellow); Urine Hyaline Cast FEW /lpf (0 - 2); Urine Mucus FEW (None Seen); Urine Protein, UAD 2+ (Negative); Urine Specific Gravity 1.022 (1.001-1.035); Urine Urobilinogen Normal (Negative); Urine WBC 7 /hpf (0 - 5); Urine pH 5.5 (5.0-9.0)
[2023-08-04] MEDS ORDERED: NITROGLYCERIN 0.4 MG SL TAB SL PRN (15:00)
[2023-08-04] MEDS ORDERED: MORPHINE SULFATE INJ 2 MG/ml SYRG IV PRN (15:00)
[2023-08-04] MEDS: ACCU-CHEK COMFORT CURVE STRIP VI SCH (16:31)
[2023-08-04] MEDS: InsuLIN REG 1unit/0.01ml Soln (100units/ml) SC SCH ×2 (16:32→22:00)
[2023-08-04] MEDS: hydrALAZINE HCL 20 MG/ML VL IV PRN (18:06)
[2023-08-04 19:30] VITALS: PULSE 76; RESP 13; O2SAT 100
[2023-08-04] MEDS: Ensure HIGH Protein Chocolate 8oz Bottle PO SCH (19:30)
[2023-08-04] MEDS: ATORVASTATIN 20 MG TAB PO SCH (22:23)
[2023-08-04] MEDS: FAMOTIDINE (10MG/ML) 2ML VL IV SCH (22:24)
[2023-08-04] MEDS: hydrALAZINE HCL 20 MG/ML VL IV ONE (23:17)
[2023-08-04] MEDS: amLODIPine BESYLATE 5 MG TAB PO ONE (23:17)
[2023-08-05] MEDS: ACETAMINOPHEN 325 MG TAB PO PRN (01:42)
[2023-08-05 05:14] LABS: Basophils # (auto) 0 10 ^3/uL (0-0.2); Basophils % (auto) 0.5 % (0.0-2.0); Eosinophils # (auto) 0.1 10 ^3/uL (0-0.8); Eosinophils % (auto) 1.3 % (0.0-7.0); Hematocrit 33.3 % (36.0-46.0); Hemoglobin 10.9 g/dL (12.2-16.2); Lymphocytes # (auto) 1.4 10 ^3/uL (0.4-5.4); Lymphocytes % (auto) 14.8 % (10.0-50.0); Mean Corpuscular Hemoglobin 26.7 pg (28.0-32.0); Mean Corpuscular Hgb Conc. 32.8 g/dL (32.0-36.0); Mean Corpuscular Volume 81.5 fL (80.0-100.0); Monocytes # (auto) 0.5 10 ^3/uL (0-1.3); Monocytes % (auto) 5.4 % (0.0-12.0); Neutrophils # (auto) 7.4 10 ^3/uL (1.6-8.6); Red Blood Cells 4.08 10^6/uL (4.0-5.20); Red Cell Distribution Width 15.6 % (11.8-14.3); White Blood Cell 9.4 10^3/uL (4.4-10.8)
[2023-08-05 05:31] LABS: Alanine Aminotransferase 13 U/L (7-40); Albumin 3.6 g/dL (3.2-4.8); Alkaline Phosphatase 93 U/L (46-116); Anion Gap 8 (5-15); Aspartate Aminotransferase 13 U/L (13-40); BUN/Creatinine Ratio 26.7 (10.0-20.0); Bilirubin, Total 0.3 mg/dL (0.2-1.0); Calcium 9.8 mg/dL (8.7-10.4); Carbon Dioxide 24 mmol/L (20-30); Chloride 105 mmol/L (98-107); Glucose 112 mg/dL (74-106); Potassium 3.8 mmol/L (3.5-5.1); Sodium 137 mmol/L (136-145); Total Protein 7.5 g/dL (5.7-8.2)
[2023-08-05 05:37] LABS: Blood Urea Nitrogen 23 mg/dL (9-23)
[2023-08-05 07:59] VITALS: PULSE 87; RESP 17; O2SAT 99
[2023-08-05] MEDS: MULTIPLE VITAMIN TAB PO SCH (09:44)
[2023-08-05] MEDS: amLODIPine BESYLATE 5 MG TAB PO SCH (09:44)
[2023-08-05] MEDS: ASPirin 81 mg TAB PO SCH (09:44)
[2023-08-05 10:08] LABS: CRP High Sensitivity 0.08 mg/dL (<1.0); Magnesium 1.7 mg/dL (1.6-2.6)
[2023-08-05] MEDS: VALSARTAN 80 MG TAB PO SCH (11:07)
[2023-08-05 16:42] VITALS: BP 171/86; PULSE 80; PULSE 88; PULSE 90; RESP 14; RESP 18; TEMP 97.8; TEMP 98.9; O2SAT 95; O2SAT 98; O2SAT 99
[2023-08-05 20:00] VITALS: PULSE 83
[2023-08-05 21:00] VITALS: BP 136/71; PULSE 82; RESP 20; TEMP 98.2; O2SAT 99
[2023-08-05] MEDS: CARVEDILOL 3.125 MG TAB PO SCH (21:36)
[2023-08-06] VITALS (8 sets, daily range): BP systolic 136–163; BP diastolic 77–85; PULSE 73–89; RESP 16–20; TEMP 98.1–98.6; O2SAT 96–99
[2023-08-06] MEDS: PANTOPRAZOLE 40 MG TAB PO SCH (05:43)
[2023-08-06 07:32] LABS: INR 1.03 (0.9-1.15); Prothrombin Time 10.9 sec (9.3-11.8)
[2023-08-06 07:41] LABS: Alanine Aminotransferase 11 U/L (7-40); Albumin 3.1 g/dL (3.2-4.8); Alkaline Phosphatase 91 U/L (46-116); Anion Gap 7 (5-15); Aspartate Aminotransferase 13 U/L (13-40); BUN/Creatinine Ratio 22.8 (10.0-20.0); Basophils # (auto) 0 10 ^3/uL (0-0.2); Bilirubin, Total 0.2 mg/dL (0.2-1.0); Blood Urea Nitrogen 23 mg/dL (9-23); Calcium 9.8 mg/dL (8.5-10.1); Carbon Dioxide 25 mmol/L (20-30); Chloride 105 mmol/L (98-107); Eosinophils # (auto) 0.1 10 ^3/uL (0-0.8); Glucose 123 mg/dL (74-106); Hemoglobin 10.6 g/dL (12.2-16.2); Magnesium 1.7 mg/dL (1.6-2.6); Potassium 3.7 mmol/L (3.5-5.1); Red Blood Cells 3.99 10^6/uL (4.0-5.20); Sodium 137 mmol/L (136-145); Total Protein 7.2 g/dL (5.7-8.2)
[2023-08-06 07:44] LABS: Basophils % (auto) 0.4 % (0.0-2.0); Eosinophils % (auto) 1.8 % (0.0-7.0); Hematocrit 32.2 % (36.0-46.0); Lymphocytes # (auto) 1.8 10 ^3/uL (0.4-5.4); Lymphocytes % (auto) 21.8 % (10.0-50.0); Mean Corpuscular Hemoglobin 26.6 pg (28.0-32.0); Mean Corpuscular Hgb Conc. 32.9 g/dL (32.0-36.0); Mean Corpuscular Volume 80.7 fL (80.0-100.0); Monocytes # (auto) 0.5 10 ^3/uL (0-1.3); Monocytes % (auto) 6.4 % (0.0-12.0); Neutrophils # (auto) 5.8 10 ^3/uL (1.6-8.6); Neutrophils % (auto) 69.6 % (37.0-80.0); White Blood Cell 8.4 10^3/uL (4.4-10.8)
[2023-08-06] MEDS: ENOXAPARIN SOD 40 MG/0.4 ML SYRINGE SC SCH (09:19)
[2023-08-06] MEDS: CARVEDILOL 3.125 MG TAB PO SCH (21:19)
[2023-08-06] MEDS: MUPIROCIN 2% OINT 15gm or 22gm FOR MRSA NARES EACHNOSTRI SCH (22:00)
[2023-08-07] VITALS: BP 148/76; PULSE 79
[2023-08-07 01:00] VITALS: BP 133/74; PULSE 78; RESP 16; TEMP 97.8; O2SAT 100
[2023-08-07 05:00] VITALS: BP 155/83; PULSE 80; RESP 16; TEMP 98.3; O2SAT 100
[2023-08-07 07:25] LABS: Basophils # (auto) 0.1 10 ^3/uL (0-0.2); Basophils % (auto) 0.8 % (0.0-2.0); Eosinophils # (auto) 0.1 10 ^3/uL (0-0.8); Hemoglobin 10.8 g/dL (12.2-16.2); Monocytes # (auto) 0.6 10 ^3/uL (0-1.3); Neutrophils # (auto) 5.9 10 ^3/uL (1.6-8.6)
[2023-08-07 07:26] LABS: Anion Gap 5 (5-15); Carbon Dioxide 27 mmol/L (20-30); Chloride 106 mmol/L (98-107); Potassium 3.8 mmol/L (3.5-5.1); Sodium 138 mmol/L (136-145)
[2023-08-07 07:27] LABS: Calcium 9.8 mg/dL (8.5-10.1); Eosinophils % (auto) 1.4 % (0.0-7.0); Hematocrit 33.3 % (36.0-46.0); Lymphocytes # (auto) 1.5 10 ^3/uL (0.4-5.4); Lymphocytes % (auto) 18.7 % (10.0-50.0); Mean Corpuscular Hemoglobin 26.2 pg (28.0-32.0); Mean Corpuscular Hgb Conc. 32.4 g/dL (32.0-36.0); Mean Corpuscular Volume 81.1 fL (80.0-100.0); Monocytes % (auto) 7.5 % (0.0-12.0); Neutrophils % (auto) 71.6 % (37.0-80.0); Nucleated Red Blood Cells % 0.1 %; Red Blood Cells 4.11 10^6/uL (4.0-5.20); Red Cell Distribution Width 16.3 % (11.8-14.3); White Blood Cell 8.2 10^3/uL (4.4-10.8)
[2023-08-07 07:31] LABS: Glucose 129 mg/dL (74-106)
[2023-08-07 07:32] LABS: BUN/Creatinine Ratio 24.4 (10.0-20.0); Blood Urea Nitrogen 22 mg/dL (9-23)
[2023-08-07 08:00] VITALS: PULSE 85
[2023-08-07 09:00] VITALS: BP 123/56; PULSE 86; RESP 17; TEMP 98.4; O2SAT 96
[2023-08-07] MEDS ORDERED: MUPI2OIN2 EACHNOSTRI (09:15)
[2023-08-07] MEDS ORDERED: CARV-214 PO (09:15)
[2023-08-07] MEDS ORDERED: ASPI-325 PO (09:15)
[2023-08-07 09:41] LABS: Hepatitis B Surface Antigen Negative (Negative)
[2023-08-07 10:02] LABS: Hepatitis C Antibody Negative (Negative)
[2023-08-07 12:25] VITALS: BP 123/56; PULSE 86; RESP 20; TEMP 98.2; O2SAT 95
== END 2023-08-07 15:05 | disposition home or self-care (01) | DRG 682 ==
LOC: ER 11:33 → EDUNIT# 11:33 → EDBD 11:33 → TELE 14:49 → TELE-WESTW 08-05 13:53
PROVIDERS: ADMIT Internal Medicine; ATTEND Internal Medicine
DX: N17.0 Acute kidney failure with tubular necrosis (principal); I21.A1 Myocardial infarction type 2; F05 Delirium due to known physiological condition; Z68.1 Body mass index [BMI] 19.9 or less, adult; E86.1 Hypovolemia; E86.0 Dehydration; R62.7 Adult failure to thrive; I25.10 Atherosclerotic heart disease of native coronary artery without angina pectoris; E11.65 Type 2 diabetes mellitus with hyperglycemia; I16.0 Hypertensive urgency; F03.90 Unspecified dementia, unspecified severity, without behavioral disturbance, psychotic disturbance, mood disturbance, and anxiety; G40.909 Epilepsy, unspecified, not intractable, without status epilepticus; D50.9 Iron deficiency anemia, unspecified; Z86.73 Personal history of transient ischemic attack (TIA), and cerebral infarction without residual deficits; Z79.899 Other long term (current) drug therapy
CPT/HCPCS: 36415; 70450; 71045; 80048; 80053; 80061; 80320; 81001; 82962; 83735; 83880; 84443; 84484; 85025; 85610; 85730; 86141; 86803; 87081; 87340; 93005; 96360; 96361; 97163; G0378; J1815; J3490